=== PATIENT | female | born 1995 | race Caucasian/White ===

== ENCOUNTER 2018-10-30 16:13 | Emergency (ER) | payer MEDICAID ==
[~2018-10-30] VITALS: Ht 172.7 cm; Wt 122.5 kg
[2018-10-30 16:22] VITALS: BP 147/88
[2018-10-30] MEDS ORDERED: NEOMYCIN/POLYMYXIN/BACITRACIN 0.9 GM/1 PKT TP ONE (16:45)
[2018-10-30] MEDS ORDERED: LIDOCAINE 1% ***ER ONLY *** 10 MG/ML VIAL INJ ONE (16:45)
[2018-10-30] MEDS ORDERED: KETOROLAC 60 MG/2 ML VIAL IM ONE (17:10)
[2018-10-30] MEDS ORDERED: LIDOCAINE MPF 1% - 5 mL VIAL 5 ML ONE ×2 (17:13)
[2018-10-30 19:20] VITALS: BP 132/69
== END 2018-10-30 18:05 | disposition home or self-care (01) ==
LOC: MED 16:13
DX: S01.511A Laceration without foreign body of lip, initial encounter (principal); W20.8XXA Other cause of strike by thrown, projected or falling object, initial encounter; Y93.89 Activity, other specified; Y92.89 Other specified places as the place of occurrence of the external cause; Y99.8 Other external cause status
CPT/HCPCS: 40650; 96372; 99284; J1885; J2001; 99283

== ENCOUNTER 2019-09-07 20:19 | Emergency (ER) | payer MEDICAID ==
[~2019-09-07] VITALS: Ht 172.7 cm; Wt 122.5 kg
--- NOTE | 2019-09-07 20:32 | NUR ---
PT TRIAGED AND SENT TO [facility]
--- NOTE | 2019-09-07 22:23 | NUR ---
PT RETURN FROM [facility] TO [facility]
--- NOTE | 2019-09-07 23:59 | NUR ---
24F PRESENTS TO ED WITH C/O LT ANKLE SPRAIN/PAIN 10/10 STABBING PAIN. CMS INTACT. LLE CAP REFILL < 3 SECONDS. PALPABLE LT PEDAL PULSE. PT PROVIDED WITH ICE PACK TO HELP WITH ALLEVIATING PAIN. PT DENIES ANY OTHER PAIN. NEURO WNL. RR EVEN AND UNLABORED. CBL SOUNDS. HEART SOUNDS EVEN AND REGULAR. ABDOMEN SOFT, NON TENDER. BOWEL SOUNDS NORMOACTIVE. DENIES SOB/COUGH. DENIES N/V/D PT PLACED IN CHAIR A AND PLACED FOR COMFORT. PMHX:DENIES RX: DENIES NEGATIVE FOR COVID SCREENING.
[2019-09-08] MEDS ORDERED: HYDROcodone/APAP 5/325 MG 1 TAB TAB ONE (00:12)
[2019-09-08] MEDS ORDERED: HYDROcodone/APAP 5/325 MG 1 TAB TAB PO ONE (00:20)
--- NOTE | 2019-09-08 00:39 | NUR ---
AIR AND TORRIE ANKLE STIRRUP SPLINT PLACED ON PT L ANKLE, FASTENED TO PT SIZE. +CSM
--- NOTE | 2019-09-08 00:40 | NUR ---
PT GIVEN INSTRUCTION ON PROPER USE OF CRUTCHES. PT CRUTCHES FITTED TO PT HEIGHT AND PT ARM LENGTH. PT GIVEN INSTRUCTION ON USE OF CRUTCHES, INCLUDING SITTING TO STANDING AND VICE VERSA, ASCENDING/DESCENDING STAIRS, AND WALKING. PT DEMONSTRATED SAFE USE FOR APPROXIMATELY 40 FEET, PT STATED SHE FELT COMFORTABLE WITH USE.
--- NOTE | 2019-09-08 00:57 | NUR ---
Patient discharged with v/s stable. Written and verbal after care instructions given and explained. Patient alert, oriented and verbalized understanding of instructions. Ambulatory with steady gait. All questions addressed prior to discharge. ID band removed. Patient advised to follow up with PMD. Rx of IBUPROFEN AND NORCO given. Patient educated on indication of medication including possible reaction and side effects. Opportunity to ask questions provided and answered.
== END 2019-09-08 00:57 | disposition home or self-care (01) ==
LOC: MED 20:19
DX: S93.402A Sprain of unspecified ligament of left ankle, initial encounter (principal); Z98.890 Other specified postprocedural states; X58.XXXA Exposure to other specified factors, initial encounter; Y93.01 Activity, walking, marching and hiking; Y92.89 Other specified places as the place of occurrence of the external cause; Y99.8 Other external cause status
CPT/HCPCS: 29515; 73610; 99283